=== PATIENT | male | born 1950 | race Caucasian/White ===

== ENCOUNTER 2024-11-18 08:48 | Day surgery (SDC) | payer OTHER ==
[2024-11-18] VITALS (16 sets, daily range): BP systolic 86–134; BP diastolic 65–82
[~2024-11-18] VITALS: Ht 177.8 cm; Wt 73.5 kg
[~2024-11-18 08:48] MED LIST: Lactated Ringer's 1,000 ML IV SCH; OSTERA TABLET1 EACH PO; TAMS.4ER PO
--- NOTE | 2024-11-18 10:12 | NUR ---
Ambulatory in Day SurgeryPre-Op teaching done. Pt verbalizes understanding. History, Chart, Medications and Allergies reviewed before start of procedure.Patient confirms NPO status and agrees with scheduled surgery. Patient States Post-Procedure ride home has been arranged.
[2024-11-18] MEDS ORDERED: propofoL 20 ML IV ONE (10:21)
[2024-11-18] MEDS ORDERED: Midazolam HCl 1MG / ML 2ML Vial ONE (10:38)
--- NOTE | 2024-11-18 10:48 | NUR ---
11/18/24 1048 Terri Rich CONFIRMED AND REVIEWED H&P, MEDCICATIONS, ALLERGIES, MEDICAL HISTORY, RESPIRATORY HISTORY, VITAL SIGNS, 3-LEAD EKG, CONSENTS, AND PHYSICIAN ORDERS. PATIENT CONFIRMS NPO STATUS AND AGREES WITH SCHEDULED PROCEDURE. MONITOR INTACT WITH CONTINUOUS PULSE OXIMETRY, CAPNOGRAPHY, 3-LEAD EKG, INTERMITTENT BP. SUPPLEMENTAL O2 TO BE TITRATED THROUGHOUT PROCEDURE TO MAINTAIN O2 SATURATION ABOVE 90%. PATIENT DETERMINED TO BE ASA APPROPRIATE FOR PROPOFOL SEDATION PRIOR TO START OF PROCEDURE BY DR. ALEGRIA.
--- NOTE | 2024-11-18 11:01 | NUR ---
REPORT RECEIVED FROM DMITRIY MERCEDES. VSS. PT ON RA. PT A&OX4. PT ABLE TO REPOSITION SELF IN BED. PT REQUESTING PO FLUIDS AND TOLERATING THEM WELL. PT DENIES PAIN, NAUSEA OR OTHER DISCOMFORTS.
--- NOTE | 2024-11-18 11:47 | NUR ---
Patient up to Ambulate independently. Gait steady. VSS AND CONSISTENT WITH PT BASELINE. PT HAS NO COMPLAINTS AND VERBALIZES READINESS TO GO HOME. PT AWAITING RIDE, WILL WAIT IN LOBBY FOR [place] RIDES W/ DISCHARGE VOLUNTEER UNTIL ARRIVAL. Discharge instructions reviewed with patient. Patient verbalizes understanding. Copy given to patient to take home. Discharged via wheelchair to private car for ride home. PT BELONGINGS RETURNED TO PT.
== END 2024-11-18 11:45 | disposition home or self-care (01) ==
LOC: ORSCMMR 08:48 → ORD 10:30 → ORSCMMR 10:30
PROVIDERS: Internal Medicine Gastroenterology
PROC: 0DBL8ZX Excision of Transverse Colon, Via Natural or Artificial Opening Endoscopic, Diagnostic (ICD-10-PCS; principal; 2024-11-18 10:30)
DX: Z12.11 Encounter for screening for malignant neoplasm of colon (principal); Z86.0100 Personal history of colon polyps, unspecified; K63.5 Polyp of colon; K57.30 Diverticulosis of large intestine without perforation or abscess without bleeding
CPT/HCPCS: 88305; J2250; J2704; J7120